=== PATIENT | male | born 1995 | race Two or more races ===

== ENCOUNTER 2016-10-24 12:46 | Emergency (ER) | payer SELFPAY ==
[~2016-10-24] VITALS: Ht 170.2 cm; Wt 72.6 kg
[2016-10-24] MEDS ORDERED: IV NORMAL SALINE 1000ML BAG 1,000 ML IV SCH (13:02)
--- NOTE | 2016-10-24 13:10 | PHYS DOC ---
Past Medical History Past Medical History: No Pertinent History Past Surgical History: No Surgical History Alcohol Use: None Drug Use: None Adult General Chief Complaint Chief Complaint: DIZZY/LIGHT HEADED [facility] HPI Patient is a 20 year old male who is otherwise healthy was working yesterday in the outdoors when he became lightheaded and dizzy and developed some chest pain in the left upper chest. He describes chest pain as prickly in nature but is 6 of 10 right now with radiation to the left arm. He's never had this before. He describes some mild shortness of breath without nausea, vomiting, abdominal pain, diarrhea or constipation with this chest pain. He's had recent travel to and from [place] about a month ago. He has not been short of breath on exertion he has not had any URI symptoms, fever, cough, chills or sick contacts. He denies any trauma, denies any night sweats or weight loss. he says the chest pain is relatively constant since chest today. Even on site EMS was dispatched to the region didn't evaluation on scene told the patient to monitor his symptoms and, only few symptoms got worse. Chest pain is worsened with deep breaths and some rotational motion at the chest wall shoulder. Differential diagnosis for chest pain: Pericarditis, myocarditis, endocarditis, pneumothorax, pneumonia, aortic dissection, esophageal spasm, esophagitis, peptic ulcer disease, acute coronary syndrome, mediastinitis, Boerhaave syndrome , musculoskeletal chest wall pain, costochondritis, intercostal strain, rib fracture, pulmonary contusion, pneumonitis, pleural effusion, pericardial effusion, pericardial tamponode, and pleurisy. Was considered upon arrival patient's lab and EKG, chest x-ray and appropriate lab work completed Review of Systems Review of Systems Constitutional: Denies fever or chills [] Eyes: Denies change in visual acuity, redness, or eye pain [] HENT: Denies nasal congestion or sore throat [] Respiratory: Denies cough or shortness of breath [] Cardiovascular: No additional information not addressed in HPI [] GI: Denies abdominal pain, nausea, vomiting, bloody stools or diarrhea [] : Denies dysuria or hematuria [] Musculoskeletal: Denies back pain or joint pain [] Integument: Denies rash or skin lesions [] Neurologic: Denies headache, focal weakness or sensory changes [] Endocrine: Denies polyuria or polydipsia [] Current Medications Current Medications Current Medications Medications (Trade) Dose Ordered Sig/Talya Start Time Stop Time Status Last Admin Dose Admin Aspirin (Children'S Aspirin) 324 mg 1X ONCE 10/24/16 13:15 10/24/16 13:16 DC 10/24/16 13:26 324 MG Hydromorphone HCl (Dilaudid) 1 mg PRN Q15MIN PRN 10/24/16 13:15 10/25/16 13:14 Sodium Chloride (Normal Saline Flush) 10 ml QSHIFT PRN 10/24/16 13:15 Allergies Allergies Allergies Coded Allergies Type Severity Reaction Last Updated Verified No Known Drug Allergies 10/24/16 No Physical Exam Physical Exam His vital signs reviewed by me Constitutional: Well developed, well nourished, no acute distress, non-toxic appearance. [] HENT: Normocephalic, atraumatic, bilateral external ears normal, oropharynx moist, no oral exudates, nose normal. [] Eyes: PERRLA, EOMI, conjunctiva normal, no discharge. [] Neck: Normal range of motion, no tenderness, supple, no stridor. [] Cardiovascular:Heart rate regular rhythm, no murmur gallops or rubs patient had mild reproducible chest pain over the left chest wall that is not exactly as a complaints. Lungs & Thorax: Bilateral breath sounds clear to auscultation [] Abdomen: Bowel sounds normal, soft, no tenderness, no masses, no pulsatile masses. [] Skin: Warm, dry, no erythema, no rash. [] Back: No tenderness, no CVA tenderness. [] Extremities: No tenderness, no cyanosis, no clubbing, ROM intact, no edema. [] Neurologic: Alert and oriented X 3, normal motor function, normal sensory function, no focal deficits noted. [] Psychologic: Affect normal, judgement normal, mood normal. [] Current Patient Data Vital Signs Vital Signs Date Time Temp Pulse Resp B/P (MAP) Pulse Ox O2 Delivery O2 Flow Rate FiO2 10/24/16 12:55 97.6 79 17 156/90 (112) 99 Room Air 97.6 Lab Values Laboratory Tests Test 10/24/16 13:00 White Blood Count 8.6 x10^3/uL (4.0-11.0) Red Blood Count 4.97 x10^6/uL (4.30-5.70) Hemoglobin 15.7 g/dL (13.0-17.5) Hematocrit 45.2 % (39.0-53.0) Mean Corpuscular Volume 91 fL (79-100) Mean Corpuscular Hemoglobin 32 pg (25-35) Mean Corpuscular Hemoglobin Concent 35 g/dL (31-37) Red Cell Distribution Width 12.9 % (11.5-14.5) Platelet Count 239 x10^3/uL (140-400) Neutrophils (%) (Auto) 67 % (31-73) Lymphocytes (%) (Auto) 26 % (24-48) Monocytes (%) (Auto) 6 % (0-9) Eosinophils (%) (Auto) 0 % (0-3) Basophils (%) (Auto) 0 % (0-3) Neutrophils # (Auto) 5.8 x10^3uL (1.8-7.7) Lymphocytes # (Auto) 2.2 x10^3/uL (1.0-4.8) Monocytes # (Auto) 0.5 x10^3/uL (0.0-1.1) Eosinophils # (Auto) 0.0 x10^3/uL (0.0-0.7) Basophils # (Auto) 0.0 x10^3/uL (0.0-0.2) D-Dimer (Sagrario) < 0.27 ug/mlFEU Sodium Level 141 mmol/L (136-145) Potassium Level 3.4 mmol/L (3.5-5.1) L Chloride Level 104 mmol/L (98-107) Carbon Dioxide Level 28 mmol/L (21-32) Anion Gap 9 (6-14) Blood Urea Nitrogen 9 mg/dL (8-26) Creatinine 0.8 mg/dL (0.7-1.3) Estimated GFR (Cockcroft-Gault) 123.2 Glucose Level 103 mg/dL (70-99) H Calcium Level 9.5 mg/dL (8.5-10.1) Magnesium Level 2.2 mg/dL (1.8-2.4) Total Bilirubin 1.3 mg/dL (0.2-1.0) H Direct Bilirubin 0.2 mg/dL (0.0-0.2) Aspartate Amino Transferase (AST) 22 U/L (15-37) Alanine Aminotransferase (ALT) 42 U/L (16-63) Alkaline Phosphatase 80 U/L (46-116) Creatine Kinase 175 U/L (39-308) Creatine Kinase MB (Mass) 1.2 ng/mL (0.0-3.6) Creatine Kinase MB Relative Index 0.7 % (0-4) Troponin I Quantitative < 0.017 ng/mL (0.000-0.055) PX-Pzp-P-Type Natriuretic Peptide 39 pg/mL (0-124) Total Protein 7.8 g/dL (6.4-8.2) Albumin 4.5 g/dL (3.4-5.0) Lipase 80 U/L (73-393) Thyroid Stimulating Hormone (TSH) 1.667 uIU/mL (0.358-3.74) Laboratory Tests 10/24/16 13:00 Laboratory Tests 10/24/16 13:00 EKG EKG [] KG timed 12:[address] Ventura demonstrates heart rate of 66 normal MI interval of 138 normal QRS of 90 and QTC of 389 this is a sinus rhythm with an occasional PAC and T-wave flattening in the anterior leads of V1 and V2 no ST segment T-wave changes consistent with pericarditis or acute coronary ischemia. Radiology/Procedures Radiology/Procedures [] [facility] [address] [place] [address] IMAGING REPORT Signed PATIENT: LUCA VIDALES ACCOUNT: [id number] : 1995 LOCATION: ER AGE: 20 SEX: M EXAM STATUS: PRE ER ORD. PHYSICIAN: STEPHANIE VENTURA MD REASON: chest pain PROCEDURE: CHEST PA & LATERAL Chest, 2 views, 10/24/2016: History: Chest pain The heart size and pulmonary vascularity are normal. No pulmonary infiltrates are seen. There is no evidence of pleural fluid. IMPRESSION: No acute cardiopulmonary abnormality is detected. DICTATED and SIGNED BY: ANANDA KOTHARI MD DATE: 10/24/16 5629 CC: STEPHANIE VENTURA MD ~ Course & Med Decision Making Course & Med Decision Making Pertinent Labs and Imaging studies reviewed. (See chart for details) patient's EKG, chest x-ray and initial CBC are completely normal. Patient's troponin is negative, TSH is negative and d-dimer is normal.Differential diagnosis for chest pain: Pericarditis, myocarditis, endocarditis, pneumothorax, pneumonia, aortic dissection, esophageal spasm, esophagitis, peptic ulcer disease, acute coronary syndrome, mediastinitis, Boerhaave syndrome, musculoskeletal chest wall pain, costochondritis, intercostal strain, rib fracture, pulmonary contusion, pneumonitis, pleural effusion, pericardial effusion, pericardial tamponode, and pleurisy, Was considered on arrival but given his duration of symptoms this is likely pleurisy or pleuritic chest pain associated with overusage. Criteria: Age < than 50 years Heart rate < 100 Oxygen saturation > 95% No hemoptysis No estrogen use No prior DVT or PE No unilateral leg swelling No surgery or trauma requiring hospitalization within the prior 4 weeks Negative PERC, neg d-dimer Is point I'll provide anti-inflammatories a couple days off work and referral to a security guard supervisor for an outpatient stress test symptoms continue. History: Highly suspicious 2 points moderately suspicious 1. slightly suspicious 0 point EKG: ST segment depression 2. nonspecific repolarization disturbance 1. normal 0 point Age: Greater than 65 2 points, 65-45 1., less than 45 years old 0 points Risk factors:> 3 risk factors 2 points, 1-2 risk factors one point, no risk factors 0 point Troponin: > 2 times normal 2 points, 1-2 times normal 1., normal limits 0 point Total score: Score % pts MACE/n MACE Policy 0-3 32% 1.9% 0.05% Discharge 4-6 51% 413/3136 13% 1.3% Observation Risk management 7-10 17% 518/1045 50% 2.8% Observation Treatment, CAG [] Patient is a score of 0 by heart which means low risk and be discharged home with close follow-up with primary care doctor and cardiology. Impression: Chest pain unclear etiology, pleurisy Disposition: PCP follow-up with cardiology referral Sena Disclaimer Dragon Disclaimer This electronic medical record was generated, in whole or in part, using a voice recognition dictation system. Departure Departure Impression: Primary Impression: Chest pain Disposition: 01 HOME, SELF-CARE Condition: IMPROVED Patient Instructions: Chest Pain (Nonspecific), Chest Pain, Child Additional Instructions: please return for any new or increasing symptoms or given any question concerns. I would ask that he follow up with her primary care doctor in 12-24 hours for a stress test through her security guard supervisor service if your symptoms continue unimproved. Scripts Naproxen (NAPROSYN) 500 Mg Tablet 1 TAB PO BID, #14 TAB 1 Refill Prov: STEPHANIE VENTURA MD 10/24/16 STEPHANIE VENTURA MD Oct 24, 2016 13:10
[2016-10-24] MEDS ORDERED: HYDROmorphone 2 MG/ML VIAL IV/SQ PRN (13:15)
[2016-10-24] MEDS ORDERED: ASPIRIN CHEWABLE 81 MG TABLET. PO ONE (13:15)
[2016-10-24] MEDS ORDERED: 0.9 % SODIUM CHLORIDE 10 ML DISP.SYRIN. IV PRN (13:15)
[2016-10-24 13:35] LABS: BASO % 0 % (0-3); EOS % 0 % (0-3); HEMATOCRIT 45.2 % (39.0-53.0); HEMOGLOBIN 15.7 g/dL (13.0-17.5); LYMPH # 2.2 x10^3/uL (1.0-4.8); LYMPH % 26 % (24-48); MEAN CORPUSCULAR HEMOGLOBIN 32 pg (25-35); MEAN CORPUSCULAR HGB CONC 35 g/dL (31-37); MEAN CORPUSCULAR VOLUME 91 fL (79-100); MONO % 6 % (0-9); NEUT % 67 % (31-73); PLATELET COUNT 239 x10^3/uL (140-400); RED BLOOD COUNT 4.97 x10^6/uL (4.30-5.70); RED CELL DISTRIBUTION WIDTH 12.9 % (11.5-14.5); WHITE BLOOD COUNT 8.6 x10^3/uL (4.0-11.0)
--- NOTE | 2016-10-24 13:35 | RAD ---
Chest, 2 views, 10/24/2016: History: Chest pain The heart size and pulmonary vascularity are normal. No pulmonary infiltrates are seen. There is no evidence of pleural fluid. IMPRESSION: No acute cardiopulmonary abnormality is detected.
[2016-10-24 13:49] LABS: CALCIUM 9.5 mg/dL (8.5-10.1); CREATININE 0.8 mg/dL (0.7-1.3); GFR 123.2; POTASSIUM 3.4 mmol/L (3.5-5.1)
[2016-10-24 13:54] LABS: ALBUMIN 4.5 g/dL (3.4-5.0); DIRECT BILIRUBIN 0.2 mg/dL (0.0-0.2); MAGNESIUM 2.2 mg/dL (1.8-2.4); TOTAL BILIRUBIN 1.3 mg/dL (0.2-1.0); TOTAL PROTEIN 7.8 g/dL (6.4-8.2)
[2016-10-24] MEDS ORDERED: NAPR500T PO (13:54)
[2016-10-24 14:04] LABS: CKMB MASS 1.2 ng/mL (0.0-3.6)
[2016-10-24 14:35] VITALS: BP 149/83
[2016-10-24 14:58] LABS: BILIRUBIN,URINE NEGATIVE (NEG); GLUCOSE,URINE NEGATIVE (NEG); NITRITE,URINE NEGATIVE (NEG); PH,URINE 7.5; PROTEIN,URINE NEGATIVE (NEG-TRACE)
[2016-10-24 15:15] LABS: BACTERIA,URINE 0 /HPF (0-FEW); RBC,URINE 0 /HPF (0-2); SQUAMOUS EPITHELIAL CELL,UR OCC /LPF; WBC,URINE 0 /HPF (0-4)
[2016-10-24 15:16] LABS: SPERM,URINE PRESENT /HPF
--- NOTE | 2016-10-25 06:57 | EKG ---
[facility] [address] [place] [address] Test Date: 2016-10-24 Test Time: 12:54:22 Pat Name: LUCA VIDALES Department: Room: Gender: M Paving Supervisor: : 1995 Requested By: STEPHANIE VENTURA Order Number: [id number] Reading MD: Measurements Intervals [place] Rate: 66 P: 49 WI: 138 QRS: 59 QRSD: 90 T: 24 QT: 370 QTc: 389 Interpretive Statements SINUS RHYTHM ATRIAL PREMATURE COMPLEX(ES) QRS(T) CONTOUR ABNORMALITY CONSIDER ANTEROLATERAL MYOCARDIAL DAMAGE POSSIBLY ABNORMAL ECG RI6.01 No previous ECG available for comparison
== END 2016-10-24 14:55 | disposition home or self-care (01) ==
LOC: ER 12:46
DX: R07.9 Chest pain, unspecified (principal); R42 Dizziness and giddiness; R06.02 Shortness of breath
CPT/HCPCS: 36415; 71020; 80048; 80076; 81001; 82553; 83690; 83735; 83880; 84443; 84484; 85027; 85379; 93005; 96360; 99285; J7030